=== PATIENT | female | born 1950 | race Caucasian/White ===

== ENCOUNTER → 2025-06-26 08:48 | Outpatient (REF) | payer OTHER, SELFPAY | LOC: HWRAD 08:48 | PROVIDERS: ATTENDING PHYSICIAN Nurse Practitioner Family | DX: Z13.6 Encounter for screening for cardiovascular disorders (principal) | CPT/HCPCS: 76770 ==

== ENCOUNTER → 2025-07-19 07:40 | Outpatient (REF) | payer OTHER, SELFPAY | LOC: RAD 07:40 | PROVIDERS: ATTENDING PHYSICIAN Registered Nurse; FAMILY PHYSICIAN Nurse Practitioner Family | DX: I65.23 Occlusion and stenosis of bilateral carotid arteries (principal); R29.898 Other symptoms and signs involving the musculoskeletal system | CPT/HCPCS: 93880; 93922; 93925 ==

== ENCOUNTER → 2025-07-20 07:42 | Outpatient (REF) | payer OTHER, SELFPAY | LOC: RAD 07:42 | PROVIDERS: ATTENDING PHYSICIAN Registered Nurse; FAMILY PHYSICIAN Nurse Practitioner Family | DX: I71.40 Abdominal aortic aneurysm, without rupture, unspecified (principal) | CPT/HCPCS: 74174; Q9967 ==

== ENCOUNTER 2025-07-20 08:15 | Outpatient (RCR) | payer OTHER, SELFPAY ==
[2025-07-20 08:22] VITALS: BP 122/70
[2025-07-20] MEDS: SODIUM BICARBONATE 1150 MEQ IV (08:30)
[2025-07-20 14:45] VITALS: BP 147/77
== END 2025-08-14 23:59 | disposition home or self-care (01) ==
LOC: OID 08:15
PROVIDERS: ATTENDING PHYSICIAN Registered Nurse
DX: I71.40 Abdominal aortic aneurysm, without rupture, unspecified (principal); R29.898 Other symptoms and signs involving the musculoskeletal system; I65.23 Occlusion and stenosis of bilateral carotid arteries
CPT/HCPCS: 74174; 96365; 96366; Q9967

== ENCOUNTER → 2025-08-06 11:26 | Outpatient (REF) | payer OTHER, SELFPAY | LOC: HWRCS 11:26 | PROVIDERS: ATTENDING PHYSICIAN Nuclear Medicine Nuclear Cardiology; FAMILY PHYSICIAN Nurse Practitioner Family | DX: I65.23 Occlusion and stenosis of bilateral carotid arteries (principal); E78.5 Hyperlipidemia, unspecified; I10 Essential (primary) hypertension; I71.40 Abdominal aortic aneurysm, without rupture, unspecified; F17.210 Nicotine dependence, cigarettes, uncomplicated; R09.89 Other specified symptoms and signs involving the circulatory and respiratory systems | CPT/HCPCS: 78452; 93017; A9500; J2785 ==

== ENCOUNTER → 2025-08-07 10:55 | Outpatient (REF) | payer OTHER, SELFPAY | LOC: RAD 10:55 | PROVIDERS: ATTENDING PHYSICIAN Nurse Practitioner Family | DX: Z78.0 Asymptomatic menopausal state (principal) | CPT/HCPCS: 77080 ==

== ENCOUNTER → 2025-08-10 08:14 | Outpatient (REF) | payer OTHER, SELFPAY | LOC: HWRCS 08:14 | PROVIDERS: ATTENDING PHYSICIAN Nuclear Medicine Nuclear Cardiology; FAMILY PHYSICIAN Nurse Practitioner Family | DX: E78.5 Hyperlipidemia, unspecified (principal); I10 Essential (primary) hypertension; I71.40 Abdominal aortic aneurysm, without rupture, unspecified; F17.210 Nicotine dependence, cigarettes, uncomplicated | CPT/HCPCS: 93306 ==

== ENCOUNTER 2025-08-14 09:19 | Inpatient (IN) | payer OTHER, SELFPAY ==
[2025-08-02 12:54] LABS: Hematocrit 34.9 % (37.0-47.0); Hemoglobin 11.3 g/dL (12.0-16.0); Mean Corp Hgb Conc. 32.4 g/dL (33.0-37.0); Mean Corpuscular Volume 92.3 fL (81.0-99.0); Nucleated Red Blood Cells % 0 %; Platelet Count 193 10^3/uL (130-400); Red Cell Dist. Width 14.6 % (11.5-14.5)
[2025-08-02 12:57] LABS: INR 0.97; PT 13.4 Sec (11.4-14.6)
[2025-08-02 12:58] LABS: APTT 30.8 Sec (23.4-35.0)
[2025-08-02 13:14] LABS: Blood Urea Nitrogen 25 mg/dl (7-17); Calcium 9.7 mg/dl (8.4-10.2); Carbon Dioxide 28 mmol/L (22-30); Chloride 106 mmol/L (98-107); Glucose 93 mg/dl (70-99); Potassium 4.6 mmol/L (3.5-5.1); Sodium 141 mmol/L (135-145); eGFR 35.89
[2025-08-02 13:18] VITALS: BMI 24.1
--- NOTE | 2025-08-07 08:31 | PTCARENOTE ---
Theresa Roberson in Dr. Delvalle's office made aware.
[2025-08-14] VITALS (11 sets, daily range): BP systolic 93–182; BP diastolic 57–97; BMI 23.8
--- NOTE | 2025-08-14 10:04 | W.SUR.PREOP ---
Pre-Operative Surgical Note
-
I have examined this patient prior to the performance of the scheduled procedure.
The patient's condition is unchanged from the time of the current History and
Physical and the patient is able to undergo the scheduled procedure.
[2025-08-14] MEDS: PERIDEX 0.12% ORAL RINSE 15 ML PO (10:21)
[2025-08-14] MEDS: BACTROBAN NASAL 1 GRAM NASAL (10:22)
[2025-08-14 14:13] LABS: ACT-LR - POC 271 Seconds (116-155)
--- NOTE | 2025-08-14 15:18 | W.IMMPOSTOP ---
Surgical Immed Post Op Note
-
Primary Surgeon: Terrence Delvalle III, MD
Assisting Surgeon: Addison Mackay MD PGY2
Pre-op Diagnosis: Abdominal aortic aneurysm
Post-op Diagnosis: Abdominal aortic aneurysm
Procedure Performed: EVAR
Anesthesia Type: General
Specimen / Cultures: None
Estimated Blood Loss: 50 cc
Complications: None
Operative Findings: EVAR (alto)
--- NOTE | 2025-08-14 16:31 | OR.RPT ---
Operative Report
Operative Report
Date of Operation: 08/14/2025
Pre Op Diagnosis: Abdominal aortic aneurysm
Post Op Diagnosis: Abdominal aortic aneurysm
Procedure:
1. Endovascular repair of abdominal aortic aneurysm using Endologix [place] device
26 mm [place] main body (inserted right femoral)
16 mm x 160 mm Ovation iX limb (contralateral/left iliac)
22 mm x 160 mm Ovation iX limb (right iliac)
2. Introduce wire/catheter to aorta from bilateral femoral artery access
3. Diagnostic aortoiliac arteriogram
4. Ultrasound-guided bilateral percutaneous femoral artery access
5. Bilateral Pro-glide closure to femoral artery access
Surgeon: Terrence Delvalle III, MD
Cloth Shrinker: Addison Mackay MD PGY2
Anesthesia: General
Complications: None
Estimated Blood Loss: 75 cc
History and Indications for Procedure: 75-year-old female with abdominal aortic aneurysm
Procedure in Detail: La Solomon was correctly identified and placed supine on the operating table. After adequate induction of anesthesia the abdomen, pelvis and bilateral groins were positioned, prepped and draped in the usual sterile fashion.
Preoperative antibiotics were administered. A timeout procedure was performed with the nursing and anesthesia staff confirming the patients identity as well as the nature and laterality of the procedure.
Under ultrasound guidance, bilateral femoral artery sheath access was obtained. The arteries were patent and without calcification. Ultrasound images of the femoral arteries were saved to the medical record. A pre-close technique was performed
bilaterally with 2 offset Proglide closure devices. The sutures were secured and tucked under surgical towels for use at the end of the case. The patient was systemically heparinized.
From the right femoral access a KMP catheter and Bentson wire were advanced to the proximal descending thoracic aorta. The wire was exchanged out through the MPA catheter for a Lunderquist wire. From the left femoral access a Bentson wire was
advanced into the abdominal aorta. A marker pigtail catheter was then placed for angiographic purposes.
The 26 mm ALTO aortic main body device was then loaded onto the right Lunderquist wire after removing the initial femoral sheath. The delivery system and aortic main body were oriented to the desired position. The delivery system was advanced into
the abdominal aorta. An aortogram was performed and identified the origins of the renal arteries bilaterally as well as the accessory renal artery on the left. The delivery system was then positioned such that the radiopaque fabric markers were just
below the accessory renal artery on the left.
The outer sheath was then retracted until the knob met the handle. The first segment of the suprarenal fixation was then deployed by turning the yellow release knob and pulling. I removed the white From the balloon injection port and inflated the
integrated balloon with 5 cc of 4:1 saline:contrast to open the mid crown. I then completely deflated the integrated balloon.
Using the radiopaque markers for orientation, the C-arm was positioned to eliminate parallax. Another aortogram was performed under magnification. The main body was then precisely positioned below the lowest renal artery. The stiff wire was pulled
back proximally to allow the main body stent graft to take the curvature of the infrarenal aorta more precisely. The pigtail catheter was pulled down into the AAA away from the suprarenal fixation stent. With the main body in the desired location
the remainder of the suprarenal fixation stent was deployed by pulling the second release knob.
The polymer was prepared on the back table. The green fill cap was then removed from the polymer injection port on the handle and the fill syringe was attached to it.The autoinjector was connected to the fill syringe and polymer was instilled.
Fluoro was used to intermittently observe filling of the main body with polymer. A timer was started to keep track of the polymer set time.
A glidewire was introduced through the pigtail catheter from the left femoral access. Using a KMP catheter and a glidewire, contralateral gate access was obtained. The catheter was spun in the main body to confirm proper position. The glidewire and
catheter were then advanced proximally. The wire was exchanged out for an Amplatz wire. A marker pigtail catheter was inserted over the stiff wire.
A retrograde arteriogram was performed in an oblique C-arm projection to visualize the iliac bifurcation and to measure lengths. A 16 mm x 160 mm iliac limb was then inserted over the stiff wire and advanced to the proper position with proper
overlap. The limb was deployed without difficulty under roadmap guidance with the distal end in the the common iliac artery, preserving the iliac bifurcation.
At the 20 minute phoebe for polymer fill the integrated balloon was used to profile of the proximal aortic seal zone.
The third release knob was pulled to release the catheter from the aortic main body. The catheter handle on the main body deployment system was retracted to reseat the nosecone in the delivery system outer sheath.
A retrograde arteriogram was then performed on the right with a pigtail catheter over the stiff wire. The iliac bifurcation was visualized and lengths were measured for the ipsilateral iliac limb. A 22 mm x 160 mm iliac limb was inserted on the
right under fluoro. Proper overlap was obtained. The limb was deployed under roadmap guidance without difficulty.
A 12 mm x 80 mm angioplasty balloon was used to profile the contralateral limb gate overlap and proximal portion of the iliac limb. A Q50 balloon was inserted on the right and used to profile the ipsilateral limb overlap and the proximal limb. The
12 mm angioplasty balloon and the Q50 balloon were then used to profile of the remainder of the iliac limbs and the distal seal zones. The angioplasty balloon was readvanced into the main body and the stiff wire removed. A pigtail catheter was
inserted and advanced to the proximal main body. All stiff wires were removed.
A completion aortogram demonstrated an excellent technical result. The aneurysm was excluded. No endoleaks were seen. There was brisk flow through the stent and iliac limbs. The renal arteries were widely patent bilaterally. The accessory left renal
artery was preserved. The iliac bifurcations were preserved bilaterally.
The Proglide sutures were secured bilaterally after removing the sheaths and wires. Protamine was administered. Additional pressure was applied to the puncture sites bilaterally for 10 minutes. Hemostasis was achieved bilaterally.
Sterile dressings were applied.
The patient tolerated the procedure well and was taken to the PACU in stable condition.
Attestation: I was present and responsible for the entire procedure
Terrence Delvalle III, MD
Vascular Surgery
[facility]
[2025-08-14] MEDS: NSS 1000 IV (17:22)
[2025-08-14] MEDS: TYLENOL 650 MG PO ×2 (17:27→23:11)
[2025-08-14] MEDS: HEPARIN SC (17:28)
--- NOTE | 2025-08-14 17:55 | PTCARENOTE ---
Pt arrived to ICU from PACU s/p EVARat 170. Pt awake and oriented at time of arrival (thought it was August). Pt received on RA w/ POx 95% on RA. Denies SOB. Lt radial [place] present, transduced, leveled/zero-balanced, waveform WNL. Rt and Lt groin
incision sites RADHA w/ Exofin closure. Well approximated, soft, no ecchymosis. Bilateral DP/PT pulses by doppler. Skin wam and pink w/ PEST CONTROLLER <2sec. HOB flat per order. Thermistor Delvalle in place at time of arrival and draining clear yellow urine. Core
temp=96.1F. Warmed blankets applied following physical assessment and pt's temp improved to 97.0F by 0. Pt reports Rt groin discomfort, 03/24. Declined ordered oxycodone 'that stuff makes me act weird' - Tylenol 650mg PO given with pt HOB flat but
bed in reverse Trendelenburg with time as documented in JAN. IVF of NS @ 80ml/hr started per order. Admission questions and physical assessment completed. Pt's daughters to bedside. Updated on pt's present condition/plan of care. Multiple questions
answered and emotional support provided. Orientation provided to room/call norman.
[2025-08-14 19:29] LABS: Hematocrit 32.6 % (37.0-47.0); Hemoglobin 11.0 g/dL (12.0-16.0); Mean Corp Hgb Conc. 33.7 g/dL (33.0-37.0); Mean Corpuscular Volume 87.6 fL (81.0-99.0); Platelet Count 161 10^3/uL (130-400); Red Cell Dist. Width 14.2 % (11.5-14.5)
[2025-08-14 19:43] LABS: INR 1.05; PT 14.0 Sec (11.4-14.6)
[2025-08-14 19:44] LABS: APTT 32.3 Sec (23.4-35.0)
[2025-08-14 19:47] LABS: ALT (SGPT) 19 U/L (0-35); AST (SGOT) 24 U/L (14-36); Albumin 3.9 g/dl (3.5-5.0); Alkaline Phosphatase 121 U/L (38-126); Blood Urea Nitrogen 24 mg/dl (7-17); Calcium 8.8 mg/dl (8.4-10.2); Carbon Dioxide 23 mmol/L (22-30); Chloride 109 mmol/L (98-107); Estimated Creatinine Clearance 34 ml/min; Glucose 136 mg/dl (70-99); Magnesium 1.6 mg/dl (1.6-2.3); Potassium 4.1 mmol/L (3.5-5.1); Sodium 138 mmol/L (135-145); Total Protein 6.3 g/dl (6.3-8.2); eGFR 42.35
--- NOTE | 2025-08-14 20:00 | PTCARENOTE ---
Rec'd pt resting in bed, family at bedside, oriented , cooperative, no c/o, SR w/ pac's, left rad sammi w/ good wave form, flushes well, zeroed, accurate to cuff, goal SBP<165, distal pulses via doppler, bilat groin incisions intact , no hematoma,
RA, lungs decr, sat 96, enc to use IS_ reaches 1000, thermister [place] draining yellow urine
[2025-08-14] MEDS: LIPITOR 10 MG PO (22:00)
[2025-08-14] MEDS: HEPARIN 5000 UNITS SC (23:12)
--- NOTE | 2025-08-14 23:13 | PTCARENOTE ---
tylenol 650mg po given for lower abd ache
[2025-08-15] VITALS (9 sets, daily range): BP systolic 103–141; BP diastolic 50–81; BMI 23.5
--- NOTE | 2025-08-15 00:15 | PTCARENOTE ---
sys reviewed, changes noted, CHG bath done, linens changed, lower abd ache now a #1
[2025-08-15 03:26] LABS: Hematocrit 28.5 % (37.0-47.0); Hemoglobin 9.7 g/dL (12.0-16.0); Mean Corp Hgb Conc. 34.0 g/dL (33.0-37.0); Mean Corpuscular Volume 88.5 fL (81.0-99.0); Platelet Count 151 10^3/uL (130-400); Red Cell Dist. Width 14.0 % (11.5-14.5)
[2025-08-15 03:29] LABS: INR 1.08; PT 14.3 Sec (11.4-14.6)
[2025-08-15 03:30] LABS: APTT 32.7 Sec (23.4-35.0)
[2025-08-15 03:37] LABS: Blood Urea Nitrogen 24 mg/dl (7-17); Calcium 8.7 mg/dl (8.4-10.2); Carbon Dioxide 22 mmol/L (22-30); Chloride 110 mmol/L (98-107); Estimated Creatinine Clearance 32 ml/min; Glucose 123 mg/dl (70-99); Potassium 4.6 mmol/L (3.5-5.1); Sodium 139 mmol/L (135-145); eGFR 38.75
[2025-08-15] MEDS: NSS 1000 IV (03:58)
--- NOTE | 2025-08-15 04:02 | PTCARENOTE ---
disha reviewed, chalino noted
--- NOTE | 2025-08-15 07:05 | CON.INTV ---
Consultation
Consultation Request
Date/Time Consultation Requested: 08/14/2025
Date/Time Consultation Performed: 08/15/2025
Medical History
-
Chief Complaint: Enlarging Aortic aneurysm
History of Present Illness:
Patient is a 75-year-old female with more than 50 years of smoking history who was incidentally noted to have abdominal aortic aneurysm as outpatient as part of screening. Patient subsequently was referred to vascular surgery and was evaluated in
the clinic and recommended to have endovascular aortic aneurysm repair. Patient was admitted to the hospital on 08/14 for the above procedure and post surgery, was admitted to ICU for close monitoring. Facilities Project Manager consultation was requested for
further input.
Past Medical History
CATARACTS, OSTEOARTHRITIS-KNEE
SMOKER, CAROTID STENOSIS
Surgical History BILATERAL KNEE SURGERIES-LAPAROSCOPIC cataract b/l 2019CTS left, right 08/08
Family History
Father: 81 yrs, COMPLICATIONS FROM SURGERY
Mother: 69 yrs, BREAST CA1 brother(s) - healthy. 2 daughter(s) - healthy.PT ADOPTED.
Social History Tobacco Use:�Tobacco Use/Smoking� Are you a �current smoker,�How often do you smoke cigarettes? �every day,�How many cigarettes a day do you smoke? �6-10.�SMOKING SINCE AGE 20 YRS.
Allergies / Home Medications
Allergies
Allergy/AdvReac Type Severity Reaction Status Date / Time
No Known Allergies Allergy Verified 07/31/25 08:35
Home Medications
�Medication �Instructions �Recorded �Confirmed �Last Taken �Type
aspirin 81 mg capsule 81 mg PO DAILY Blood Clot 07/20/25 08/14/25 08/14/25 07:00 History
Prevention/Tx
atorvastatin 10 mg tablet 10 mg PO HS High Cholesterol 07/20/25 08/14/25 08/13/25 22:00 History
hydrochlorothiazide 12.5 mg tablet 12.5 mg PO DAILY Blood Pressure 07/20/25 08/14/25 08/13/25 09:00 History
losartan 100 mg tablet 100 mg PO DAILY Blood Pressure 07/20/25 08/14/25 08/13/25 09:00 History
Review of Systems
-
Hematologic/Lymphatic: Other (All 14 systems reviewed and negative except as stated above in the history of present illness.)
Vitals / Labs / Diagnostic Testing
Vital Signs
Temp Pulse Resp BP Pulse Ox
98.2 F 74 17 182/88 99
08/14/25 09:49 08/14/25 09:49 08/14/25 09:49 08/14/25 09:49 08/14/25 09:49
Lab Data
08/02/25 09:27
08/02/25 09:27
Diagnostic Testing:
Physical Exam
-
HEENT: Normocephalic
Cardiovascular: S1/S2
Respiratory: Clear
GI: Soft and Non Distended
Neurology: Awake and Alert
Skin: Warm
General: Comfortable
Assessment
-
Patient is 75-year-old female with history of abdominal aortic aneurysm s/p EVAR (endovascular abdominal aortic aneurysmal repair) by vascular surgery service, POD #1
Continue observation following procedure
Follow neurovascular checks per protocol
ASA and statin on board
Follow BP monitoring and parameters as set by primary team
Cardiac history reviewed
Monitor on telemetry
Pain control per protocol
RASS goal 0
No prior history of pulmonary disease except for Pulmonary nodules.
Smoked for 50 years, quit in 07/2025.
CXR reviewed indicating no acute disease
No prior PFTs for review
Encouraged IS
Diet advancement per protocol
Aspiration precautions
GI prophylaxis: Protonix
Cr at baseline, follow UO
Critical I/Os
Void trials
Replete electrolytes as needed
No signs/symptoms suspicious for infectious etiology at this time
Will observe off antibiotics for now
Follow temperatures/CBC
Hb and platelets postoperatively stable
DVT prophylaxis: SCDs. Defer to surgery service
Other medical diagnoses:
- HTN
- HLD
- Left renal artery stenosis
- H/o Smoking (50 years)
- Pulmonary nodule. Patient counselled regarding need for close follow up. Advised out patient follow up with Pulmonary clinic. Information added to discharge section.
- CKD stage III
Critical Care time [61 ] mins -- The patient is admitted for acute critical illness for the treatment of vital organ failure and/or prevention of further life-threatening conditions. Total care includes time spent in review of history, physical
exam, medications, hemodynamic/ventilator parameters, laboratory data, imaging and discussion with house staff, pharmacy, respiratory therapy, gas usage meter clerk, and nursing
Data:
CXR 07/2025: No acute cardiopulmonary process. Hyperinflation suggesting COPD.
ECHO 07/2025: 1. Normal left ventricular size and systolic function with mild concentric left ventricular hypertrophy. Left ventricular ejection fraction by Garcia's biplane method 61%.
2. Normal RV size and systolic function. Estimated pulmonary artery systolic pressure 30 mmHg assuming a right atrial pressure of 3 mmHg.
3. Mitral sclerosis without significant stenosis. Trace mitral insufficiency.
4. Trileaflet sclerotic aortic valve without stenosis. No significant aortic insufficiency.
5. Mild tricuspid regurgitation.
6. Sinus of Valsalva is 3.1 cm., S-T junction is 2.5 cm. and proximal ascending aorta is 3.7 cm. Plaque is noted in the aortic root with focal plaque noted in the sinotubular junction.
7. There are no prior studies available for comparison.
Lexiscan 07/2025: Perfusion imaging reveals a small area of moderately reduced perfusion in the basal inferior and basal septum in rest images. In rest and prone images, basal inferior wall perfusion normalizes consistent with inferior soft tissue
attenuation. The basal septal defect persists likely a normal variant, cannot exclude a small scar.
No evidence for scan ischemia
Inconclusive pharmacologic stress EKG for ischemia
Systolic function is normal. The ejection fraction is 59%.
Stress Risk is moderate risk secondary to use of pharmacologic agent.
CT A/P 07/2025: 1. Tortuous abdominal aorta with fusiform infrarenal aneurysm measuring approximately 4.7 cm. Additional findings above.
2. Mild dilatation of the right common iliac artery measuring 18 mm.
3. Likely stenosis at the origin of the left main renal artery.
LDCT 06/2023: 1. Pleural-based peripheral nodule within the left upper lobe, measuring 4 mm in diameter, most likely representing rounded atelectasis or scarring. No additional nodules are seen.
2. Mild coronary arterial calcification. Please correlate with symptoms of and risk factors for coronary artery disease, with further workup as clinically appropriate.
3. Possible gallstone, without evidence of acute cholecystitis.
4. Lung RADS category 2 (benign appearance, less than 1% chance of malignancy).
Solid nodules: Less than 6 mm, or new nodule less than 4 mm.
--- NOTE | 2025-08-15 07:07 | W.PN.VS ---
Addendum entered and electronically signed by Chapin Ricks MD 08/15/25 07:51:
Seen and examined with MARITZA Feng. Agree with findings as noted below. Patient had a little bit of crampy abdominal discomfort overnight, but then she passed gas and felt better. No discomfort currently. No back pain. No abdominal pain. No other
significant complaints. Exam as noted below. Abdomen is soft, nondistended, nontender. Groins are flat bilaterally. 2+ femoral pulses palpable bilaterally. Right side palpable PT pulse left side palpable DP pulse. Feet are warm. Plan/as
discussed and noted below. Will repeat hemoglobin, but no clinical signs of active bleeding.
Original Note:
Today's Communication / Plan
-
Patient seen and examined at bedside with Dr. Chapin Ricks M.D., below plan reviewed with attending.
Assessment/Plan
-
Assessment: 75-year-old female POD #1 EVAR
Plan:
Scant drift in hemoglobin postoperatively from 11-9.7 this morning, will repeat, low likelihood for concern of bleeding suspect hemodilution for anemia because but will confirm with redraw
Discontinue IV fluid
Discontinue arterial line
Discontinue Delvalle catheter
Continue aspirin and statin
Out of bed to chair with progression to ambulation as tolerated
Possible discharge later this afternoon pending patient progression
Subjective Data
-
Date of Service: August 15, 2025
Patient seen examined at bedside, offers no complaints. Endorses overnight she is experiencing mild lower abdominal cramping pain, now resolved. Additionally noted headache that is also now resolved following Tylenol administration. Denies
nausea, vomiting, fever, and chills.
Objective Data
-
Vital Signs
Temp Pulse Resp BP Pulse Ox
97.9 F 54 17 107/57 98
08/15/25 03:34 08/15/25 05:00 08/15/25 05:00 08/15/25 04:00 08/15/25 05:00
Intake and Output
08/14/25 08/15/25 08/16/25
06:59 06:59 06:59
Intake Total 1420 / 1420
Output Total 960 / 960
Balance 460 / 460
Intake:
Oral fluids 300 / 300
IV fluids (Total) 1119
Nss 1,000 ml @ 80 mls/hr IV . 1119
[id number] [facility] Rx#:[id number]
Output:
Urine, Delvalle 960 / 960
Lab Results
08/15/25 03:04
Calcium 8.7 mg/dl (8.4-10.2) 08/15/25 03:04
Phosphorus 3.9 mg/dl (2.5-4.5) 08/14/25 19:21
Magnesium 1.6 mg/dl (1.6-2.3) 08/14/25 19:21
Total Bilirubin 0.8 mg/dl (0.2-1.3) 08/14/25 19:21
AST 24 U/L (14-36) 08/14/25 19:21
ALT 19 U/L (0-35) 08/14/25 19:21
Alkaline Phosphatase 121 U/L (38-126) 08/14/25 19:21
Total Protein 6.3 g/dl (6.3-8.2) 08/14/25 19:21
Albumin 3.9 g/dl (3.5-5.0) 08/14/25 19:21
Physical Exam
-
No apparent distress, resting in bed comfortably
No tachycardia
No dyspnea on room air
ABD flat, nontender, nondistended, no CVA tenderness
Bilateral groin puncture sites clean, dry, and intact, Exofin glue intact, no evidence of hematoma or edema, all surrounding compartments soft
Bilateral feet warm, bilateral DP pulse +1 palpable
Delvalle draining clear yellow urine
[2025-08-15 07:15] LABS: Hematocrit 28.6 % (37.0-47.0); Hemoglobin 9.7 g/dL (12.0-16.0)
[2025-08-15] MEDS: COZAAR 100 MG PO (08:13)
[2025-08-15] MEDS: ORETIC 12.5 MG PO (08:13)
[2025-08-15] MEDS: ASPIR LOW (ENTERIC COATED) 81 MG PO (08:14)
[2025-08-15] MEDS: HEPARIN 5000 UNITS SC (08:14)
--- NOTE | 2025-08-15 08:30 | PTCARENOTE ---
Assumed care of pt at 0715 following shift report. Pt awake and resting quietly in bed. Report 'little' / groin discomfort, otherwise denies any complaints. Received on RA w/ Pox 95%. Delvalle patent and draining cl. yellow urine. IVF of NS @
80ml/hr infusing. Lt radial [place] patent, transduced, leveled/zero-balanced, waveform WNL. Tolerating cl diet. Dr Ricks and Ana JANE in room to evaluate pt. Aware of pt's c/o abdominal discomfort overnight as well as H/H results. Pt reports abd.
discomfort improved w/ passing flatus. Orders received. IVF, Jhoana, Delvalle removed. Pressure held at A-line insertion site until hemostasis achieved and gauze dressing applied to site. Pt sat at edge of bed and assisted w/ AM hygiene. OOB to chair w/
minimal assist. Gait steady. Tolerating increased activity w/o complaint or change in appearance of bilateral groin incisions. Pt assisted in ordering breakfast. Call norman w/in pt reach and pt instructed to call and wait for assistance before
getting out of chair- pt verbalized understanding. Safe environment maintained.
--- NOTE | 2025-08-15 10:58 | PTCARENOTE ---
Pt ambulated to BR to void. Gait steady. No complications or new complaints. Returned to chair, watching TV. Remains on RA w/ Pox 95%. Using IS to pull 750ml
--- NOTE | 2025-08-15 11:56 | PTCARENOTE ---
Pt ambulated around ICU w/ supervision. Gait steady. Tolerated w/o complication. Returned to chair. Daughter visiting. No changes from previous assessment findings.
--- NOTE | 2025-08-15 12:06 | CM ---
Initial assessment completed with patient whose daughter and S-I-L live with her in a 2 story plus basement home with B/B on 2nd and 1/2 bath on 1st, 3 steps to enter. 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
Has a RW and SPC but does not use. No in-home services. Does have a HC-POA. No VA benefits. No psychiatric hospitalizations. PHYSICIAN CODER is Zoila Rubio with [facility]. Pharmacy is [facility] in [place]. Discharge POC: Anticipate home with no needs.
--- NOTE | 2025-08-15 12:41 | W.DS.TRANS ---
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
-
Discharge Instructions:
Discharge Diagnosis/Procedures Endovascular repair of abdominal aortic aneurysm
using Endologix [place] device
Diet As tolerated
Activity No strenuous activity
Driving Restrictions No driving for 1 week
Bathing Restrictions OK to Shower
Instructions:
Stand-Alone Forms: Vascular Surg Discharge Instr
Changes to Home Medications: No
Discharge Medications:
DC Medications w/original date entered in [email or web address]
aspirin 81 mg capsule 81 mg PO DAILY Blood Clot Prevention/Tx 07/20/25
atorvastatin 10 mg tablet 10 mg PO HS High Cholesterol 07/20/25
hydrochlorothiazide 12.5 mg tablet 12.5 mg PO DAILY Blood Pressure 07/20/25
losartan 100 mg tablet 100 mg PO DAILY Blood Pressure 07/20/25
Home Medication Changes
Pending Results: No
[2025-08-15] MEDS: FLUZONE HIGH-DOSE 2025-26 0.5 ML IM (13:22)
--- NOTE | 2025-08-15 13:34 | PTCARENOTE ---
Discharge order noted. Pt has been sitting up in bedside chair visiting w/ daughters. No new complaints. Incision appearances unchanged. Discharge instructions reviewed w/ pt and daughter. Questions answered. Clarification about MRI compatibility
and airport screening obtained from Jaqueline JANE. Flu shot administered as requested by pt. IV sites/infantry unit leader removed. Pt to d/c via WC to be transported home by daughter.
--- NOTE | 2025-08-15 13:52 | CM ---
Patient has been medically cleared for discharge to home with no additional skilled services. Patient has arranged for transport home. j
== END 2025-08-15 13:44 | disposition home or self-care (01) | DRG 269 ==
LOC: ICU 09:19
PROVIDERS: Nurse Practitioner; ADMITTING PHYSICIAN Surgery Vascular Surgery; CONSULT PHYSICIAN Internal Medicine; PRIMARYCARE PHYSICIAN Nurse Practitioner Family
PROC: 04V03DZ Restriction of Abdominal Aorta with Intraluminal Device, Percutaneous Approach (ICD-10-PCS; 2025-08-14)
PROC: 3E02340 Introduction of Influenza Vaccine into Muscle, Percutaneous Approach (ICD-10-PCS; 2025-08-15)
DX: I71.40 Abdominal aortic aneurysm, without rupture, unspecified (principal); F17.200 Nicotine dependence, unspecified, uncomplicated; I12.9 Hypertensive chronic kidney disease with stage 1 through stage 4 chronic kidney disease, or unspecified chronic kidney disease; N18.30 Chronic kidney disease, stage 3 unspecified; E78.5 Hyperlipidemia, unspecified; R91.1 Solitary pulmonary nodule; Z23 Encounter for immunization; Z79.899 Other long term (current) drug therapy
CPT/HCPCS: 34705; 36415; 71045; 71046; 80048; 80053; 83735; 84100; 85014; 85018; 85025; 85027; 85610; 85730; 86850; 86900; 86901; 90662; 93005; 99406; C1725; C1760; C1769; C1894; G0008; Q9967

== ENCOUNTER 2025-09-21 07:34 | Outpatient (RCR) | payer OTHER, SELFPAY ==
[2025-09-21 07:49] VITALS: BP 143/75
[2025-09-21] MEDS: SODIUM BICARBONATE 1150 MEQ IV (08:11)
== END 2025-10-14 23:59 | disposition home or self-care (01) ==
LOC: OID 07:34
PROVIDERS: ATTENDING PHYSICIAN Registered Nurse
DX: I71.40 Abdominal aortic aneurysm, without rupture, unspecified (principal); R29.898 Other symptoms and signs involving the musculoskeletal system; I65.23 Occlusion and stenosis of bilateral carotid arteries
CPT/HCPCS: 96365